=== PATIENT | female | born 1965 | race Caucasian/White ===

== ENCOUNTER 2017-07-01 22:26 | Emergency (ER) | payer OTHER ==
[2017-07-01] MEDS: 0.9 % SODIUM CHLORIDE 1,000 ML IV SCH (22:30)
--- NOTE | 2017-07-01 22:54 | ED Physician Documentation ---
Syncope/Near Syncope - HISTORIAN Historian: patient, paramedics - HPI Chief Complaint: Syncope Additional Information: acute near/syncope w/collapse at pay window. ok now. pt had not eaten since cookie at 08oo then arr [employer] 1500 had small bottle water and1/2 glass MR BRIAN. pt apparent near syncope aroused near immediate once down ems got bp of 112/58 on arrival here her bp = 113/69 spo2= 97-100. pt alert c/o being hungry and says she is back to normal. she agrees to ekg and lab work. Witnessed: Yes (at [employer]-im[facility] bp there = 80+ sys) Witnessed By: bystander Position at Time of Episode: lying down Symptoms Prior to Episode: light-headed, visual disturbance Character of Events(s): collapsed, almost passed out (maybe yes very briefly-pt unsure). denies: became unresponsive Symptoms after Event: denies: confused after event, incontinent of urine, incontinent of stool Location of Injury: none Associated Symptoms: feels back to normal Further Comments: yes (no injuries found-pt states no prev syncope) - ROS CONST: denies: recent illness, fever, cough, chills EYES/ENT: none MS/SKIN/LYMPH: denies: joint pain, leg swelling, rash, swollen glands NEURO/PSYCH: denies: confusion, anxiety, depression - PAST HX Cardiac Disease: none Other History: asthma Surgeries/Procedures: BTL Allergies/Adverse Reactions: Allergies Allergy/AdvReac Type Severity Reaction Status Date / Time No Known Allergies Allergy Verified 07/01/17 22:46 Home Medications: Ambulatory Orders Medication Instructions Recorded Albuterol Sulfate [ProAir 1 puff INH DIRECTED 07/01/17 [facility]] - SOCIAL HX Smoking History: less than 1 pack/day Alcohol Use: none Drug Use: none - FAMILY HX Family History: denies: sudden cardiac - VITAL SIGNS Vital Signs: Vital Signs Temp Pulse Resp BP Pulse Ox 98.1 F 79 16 107/66 97 07/01/17 22:26 07/01/17 22:26 07/01/17 22:26 07/01/17 22:26 07/01/17 22:26 - REVIEWED ASSESSMENTS Nursing Assessment Reviewed: Yes Vitals Reviewed: Yes ED Results Lab/Radiology - Lab Results Lab Results: Lab Results 07/01/17 07/01/1718 Unknown Unknown Unknown WBC 12.10 K/ul H K/ul (4.00-12.00) RBC 4.46 M/ul M/ul (3.90-5.20) Hgb 14.1 g/dL g/dL (12.0-16.0) Hct 43.8 % % (34.5-46.5) MCV 98.2 fl fl (80.0-100.0) MCH 31.6 pg pg (28.0-34.0) MCHC 32.2 g/dL g/dL (30.0-36.0) RDW 13.4 % % (11.3-14.3) Plt Count 240 K/mm3 K/mm3 (130-400) Neut % (Auto) 76.4 % % (39.0-79.0) Lymph % (Auto) 17.4 % % (16.0-50.0) Leon % (Auto) 3.7 % % (0.0-11.0) Eos % (Auto) 0.2 % % (0.0-6.8) Baso % (Auto) 0.7 (0.0-1.5) Neut # (Auto) 9.2 # k/uL H # k/uL (1.4-7.7) Lymph # (Auto) 2.1 # k/uL # k/uL (0.6-4.0) Leon # (Auto) 0.4 # k/uL # k/uL (0.0-0.9) Eos # (Auto) 0.0 # k/uL # k/uL (0.0-0.6) Baso # (Auto) 0.1 # k/uL # k/uL (0.0-0.5) Reactive Lymphs % 1.6 % % (0.0-5.0) Reactive Lymphs # 0.2 # k/uL # k/uL (0.0-0.8) Sodium 139 mmol/L mmol/L (136-145) Potassium 3.6 mmol/L mmol/L (3.5-5.1) Chloride 101 mmol/L mmol/L (98-107) Carbon Dioxide 24 mmol/L mmol/L (22-30) BUN 9 mg/dL mg/dL (7-17) Creatinine 0.80 mg/dL mg/dL (0.52-1.04) Estimated Creat Clear 84 Est GFR ( Amer) > 60 (60 - ) Est GFR (Non-Af Amer) > 60 (60 - ) Glucose 116 mg/dL H mg/dL (74-106) Calcium 9.5 mg/dL mg/dL (8.4-10.2) Total Bilirubin 1.0 mg/dL mg/dL (0.2-1.3) AST 21 U/L U/L (15-46) ALT 24 U/L U/L (13-69) Alkaline Phosphatase 86 U/L U/L (38-126) Troponin I < 0.03 ng/mL L ng/mL (0.03-0.06) Total Protein 7.9 g/dL g/dL (6.3-8.2) Albumin 4.4 g/dL g/dL (3.5-5.0) - Orders Orders: ED Orders Category Date Time Status CBC/PLATELET/DIFF Routine Lab 07/01/17 Completed CMP Routine Lab 07/01/17 Completed TROPONIN I (cTnI) Stat Lab 07/01/17 Completed 0.9 % Sodium Chloride [Normal Saline] 1,000 ml Med 07/01/17 23:00 Ordered IV Q10H EKG WITH COMPARISON Stat Ther 07/01/17 Ordered Syncope Physical Exam - Physical Exam General Appearance: no acute distress, alert. No: anxious, lethargic, hyperventilating EENT: nml eye inspection Neck/Back: neck supple, non-tender, no carotid bruit Respiratory: no resp distress, breath sounds normal CVS: reg rate & rhythm, heart sounds normal Abdomen: non-tender, no distention Extremities: non-tender, normal range of motion, no edema - Neuro/Psych Higher Functions: alert, oriented x3, mood/affect nml Sensorimotor: nml motor response, nml sensory response Discharge Clincal Impression: acute syncope due to orthostasis and deh, dehydration Referrals: Primary Doctor,No [REFERRING] - 2 Days Comments: home -stay well hydrated - f/u soon w/any similar symptoms Condition: Good Disposition: 01 HOME, SELF-CARE Decision to Admit: NO Decision Time: 23:53
[2017-07-01 23:34] LABS: eGFR (African) > 60; eGFR (Non-African) > 60
[2017-07-01 23:45] LABS: BASOPHILS % 0.7 (0.0-1.5); EOSINOPHILS % 0.2 % (0.0-6.8); MONOCYTES % 3.7 % (0.0-11.0); NEUTROPHILS # 9.2 # k/uL (1.4-7.7)
[2017-07-01 23:46] LABS: MEAN CORPUSCULAR HEMOGLOBIN 31.6 pg (28.0-34.0); MEAN CORPUSCULAR VOLUME 98.2 fl (80.0-100.0)
[2017-07-02 00:09] VITALS: BP 100/49
== END 2017-07-02 | disposition home or self-care (01) ==
LOC: ED 22:26
DX: E86.0 Dehydration (principal); I95.1 Orthostatic hypotension
CPT/HCPCS: 80053; 84484; 85025; 93005; J7030; 96360; 96361; 99283